=== PATIENT | male | born 1950 | race Caucasian/White ===

== ENCOUNTER 2022-02-19 08:00 | Outpatient (CLI) | payer OTHER ==
[~2022-02-19 08:00] MED LIST: CIPRO500 MG PO; CREON DR 24,001 EACH; INTESTINEX1 CA1 PO; ZANTAC150 M3
== END 2022-02-19 08:30 | disposition home or self-care (01) ==
LOC: PPH VACUNA 08:00
PROVIDERS: ATTEND Emergency Medicine Pediatric Emergency Medicine
DX: Z23 Encounter for immunization (principal)

== ENCOUNTER 2022-07-26 07:55 | Emergency (ER) | payer OTHER ==
[~2022-07-26] VITALS: Ht 177.8 cm; Wt 97.5 kg
[2022-07-26] MEDS ORDERED: OSEL75CA PO (11:04)
== END 2022-07-26 11:10 | disposition home or self-care (01) ==
LOC: ER 07:55
DX: B34.9 Viral infection, unspecified (principal); Z20.822 Contact with and (suspected) exposure to COVID-19

== ENCOUNTER 2023-07-02 07:05 | Outpatient (CLI) | payer OTHER ==
[~2023-07-02 07:05] MED LIST changes: +OSEL75CA PO
== END 2023-07-02 07:06 | disposition home or self-care (01) ==
LOC: NUCLEAR 07:05
PROVIDERS: ATTEND Internal Medicine Gastroenterology
DX: K81.1 Chronic cholecystitis (principal)
CPT/HCPCS: 78227; A9537; J2805